=== PATIENT | female | born 1960 | race Caucasian/White ===

== ENCOUNTER 2020-02-16 06:29 | Emergency (ER) | payer OTHER ==
[~2020-02-16] VITALS: Ht 170.2 cm; Wt 104.3 kg
[2020-02-16 06:57] LABS: ABSOLUTE BASOPHILS 0.1 thou/uL (0.0-0.2); ABSOLUTE EOSINOPHILS 0.1 thou/uL (0.0-0.7); ABSOLUTE LYMPHOCYTES 2.6 thou/uL (0.8-5.3); ABSOLUTE MONOCYTES 0.3 thou/uL (0.0-1.2); ABSOLUTE NEUTROPHILS 4.7 thou/uL (1.6-8.1); BASOPHILS 1.2 %; EOSINOPHILS 1.8 %; HEMATOCRIT 45.1 % (37.0-47.0); HEMOGLOBIN 15.4 gm/dL (12.0-15.0); LYMPHOCYTES 33.4 %; MCH 29.6 pg (26.0-34.0); MCHC 34.1 g/dL (28.0-37.0); MCV 86.7 fL (80.0-100.0); MONOCYTES 3.4 %; MPV 10.9 fl. (7.2-11.1); NUCLEATED RBCS 0 /100WBC; PLATELET COUNT* 201 thou/uL (150-400); POLYS 60.2 %; RDW-CV 13.3 % (10.5-14.5); WBC 7.9 thou/uL (4.0-11.0)
[2020-02-16 07:06] LABS: CALCIUM 8.4 mg/dL (8.5-10.1); CREATININE 0.9 mg/dL (0.6-1.3); POTASSIUM 3.2 mmol/L (3.5-5.1)
[2020-02-16] MEDS ORDERED: DIAZEPAM 2MG TAB2 MG PO (07:38)
[2020-02-16 08:52] LABS: URINE BILIRUBIN NEGATIVE (Negative); URINE BLOOD NEGATIVE (Negative); URINE CLARITY CLEAR; URINE COLOR YELLOW; URINE GLUCOSE-RANDOM NEGATIVE (Negative); URINE KETONES NEGATIVE (Negative); URINE LEUKOCYTES-REFLEX 1+ (Negative); URINE NITRITE-REFLEX NEGATIVE (Negative); URINE PROTEIN NEGATIVE (Negative); URINE SPECIFIC GRAVITY 1.015 (1.005-1.030); URINE UROBILINOGEN 0.2 E.U./dl (0.2-1.0)
[2020-02-16 09:14] LABS: BACTERIA-REFLEX 1-9 Few /HPF (None Seen); CASTS None Seen /LPF (None Seen); CRYSTALS None Seen /LPF (None Seen); MUCUS None Seen strn/LPF (None Seen); SQUAMOUS 0-3 Few /LPF (0-3); URINE RBC 0-2 Rare /HPF (0-2); URINE WBC-REFLEX 0-5 Rare /HPF (0-5)
[2020-02-16 09:44] VITALS: BP 154/91
--- NOTE | 2020-02-16 09:44 | EKG ---
[place] [address] ELECTROCARDIOGRAM REPORT Name: KETAN HODGSON Room: [facility]#: [id number] Admission: 02/16/20 Attend Phys: Discharge: Date of : 58 Date of Service: 02/16/20 0710 Report #: [id number] THIS REPORT FOR: //name// [facility] ED Test Date: 2020-02-16 Test Time: 07:10:54 Pat Name: KETAN HODGSON Department: Room: Gender: F Level Vial Grinder: : 1960 Requested By: Nelli Zafar Order Number: [id number] MD: Donta Green Measurements Intervals [place] Rate: 87 P: 41 [place]: 175 QRS: -30 QRSD: 107 T: 15 QT: 427 QTc: 514 Interpretive Statements Sinus rhythm Abnormal R-wave progression, late transition Inferior infarct, old Prolonged QT interval Baseline wander in lead(s) II,III,aVF No previous ECG available for comparison Electronically Signed On 02-16-2020 9:44:02 CDT by Donta Green [email or web address] <ELECTRONICALLY SIGNED> By: Donta Green MD, FACC 02/16/20 0944 9 Donta Green MD, [facility] /EPI
== END 2020-02-16 09:44 | disposition home or self-care (01) ==
LOC: M.ERS 06:29
PROVIDERS: Emergency Medicine
DX: R42 Dizziness and giddiness (principal); I10 Essential (primary) hypertension